=== PATIENT | female | born 1965 | race Caucasian/White ===

== ENCOUNTER 2021-06-17 03:07 | Observation (INO) | payer MEDICARE, MEDICAID, SELFPAY ==
[2021-06-17] VITALS (18 sets, daily range): BP systolic 134–163; BP diastolic 60–78; PULSE 71–103; RESP 15–20; TEMP 35.7–36.7; O2SAT 96–100; BMI 43.0
--- NOTE | ~2021-06-17 | XR_ITS ---
EXAMINATION: XR chest 2V DATE: 06/17/2021 03:47 INDICATION: Chest pain. TECHNIQUE: Frontal and lateral views of the chest were obtained. COMPARISON: CT abdomen 05/24/2007 FINDINGS: There is mild scarring at the lung apices. No pleural effusion or pneumothorax. The heart s ize is normal. Surgical clips in the right upper quadrant are likely from cholecystectomy. IMPRESSION: 1. Mild scarring at the lung apices. Reviewed, dictated and finalized at location A. OLEUM REFINING FIRER
--- NOTE | ~2021-06-17 | NM_ITS ---
EXAMINATION: NM suma stress w perfusion DATE: 06/18/2021 13:29 INDICATION: Atypical chest pain. TECHNIQUE: Rest images were obtained following intravenous administration of 11 mCi Tc99m tetrofosmin (Myoview). The patient was infused intravenously with Lexiscan (regadenoson). Then, 32.4 mCi Tc99m t etrofosmin (Myoview) was administered intravenously, and stress images were obtained. Data was recons tructed into short axis and horizontal and vertical long axis SPECT images. Gated SPECT images were a lso obtained. COMPARISON: CT abdomen 05/24/2007 FINDINGS: There is no definite reversible or fixed perfusion abnormality to suggest ischemia or infar ction. There is no segmental wall motion abnormality. Left ventricular ejection fraction measures 6 9%. IMPRESSION: 1. No definite ischemia or infarct. 2. Normal left ventricular ejection fraction measuring 69%. Reviewed, dictated and finalized at location A. SERVICE TECHNICIAN
--- NOTE | 2021-06-17 03:13 | ECG_ITS ---
Measurements Intervals [place] Rate: 89 P: 26 AL: 176 QRS: 8 QRSD: 92 T: 52 QT: 355 QTc: 432 Interpretive Statements SINUS RHYTHM BASELINE ARTIFACT LOW-VOLTAGE QRS BORDERLINE ECG NO PREVIOUS ECG AVAILABLE FOR COMPARISON Electronically Signed On 06-17-2021 14:05:24 TECHNICAL ARCHITECT by Arian Moore M.D.
[2021-06-17 03:24] LABS: Basophils Absolute Auto 0.1 K/mm3 (0.0-0.1); Basophils Percent Auto 0.7 % (0.2-1.2); Eosinophils Absolute Auto 0.3 K/mm3 (0-0.3); Eosinophils Percent Auto 3.2 % (0-4.4); Hematocrit 38.9 % (37.0-47.0); Hemoglobin 12.7 g/dL (12.0-15.0); Immature Granulocyte Absolute 0.04 K/mm3 (0.00-0.031); Immature Granulocyte Percent A 0.4 % (0-0.5); Lymphocytes Absolute Auto 2.94 K/mm3 (0.9-3.2); Mean Corpuscular HGB Conc 32.6 g/dl (32-36); Mean Corpuscular Hemoglobin 29.7 pg (26-34); Mean Corpuscular Volume 90.9 fl (80-100); Monocytes Absolute Auto 0.7 K/mm3 (0.1-0.6); Monocytes Percent Auto 6.9 % (2.6-8.5); Neutrophils Absolute Auto 6.1 K/mm3 (1.3-6.7); Neutrophils Percent Auto 59.8 % (45.5-73.1); Platelet Count Result 285 k/mm3 (150-375); Red Blood Count 4.28 M/mm3 (4.2-5.4); Red Cell Distribution Width 13.1 % (11.5-14.5); White Blood Count 10.1 K/mm3 (4.5-10.0)
[2021-06-17] MEDS: ASPIRIN 81 MG CHEWABLE TABLET 324 MG PO (03:28)
--- NOTE | 2021-06-17 03:30 | ED.CHESTPAIN ---
HPI - Chest Pain General Chief Complaint: Chest Pain Stated Complaint: chest pain Time Seen by Provider: 06/17/21 03:14 Source: patient Mode of arrival: ambulatory Limitations: no limitations History of Present Illness HPI narrative: Patient is a 55-year-old female complaining of chest pain, midsternal, sharp, was 7 out of 10, currently at 3 out of 10, nonradiating accompanied by dizziness and shortness of breath started a few hours prior to arrival. Patient denies any abdominal pain, nausea, vomiting, diaphoresis, fever or chills. Related Data Allergies Allergy/AdvReac Type Severity Reaction Status Date / Time ANTIOBIOTIC, DOES NOT KNOW Allergy Intermediate BURNT MY Uncoded 04/24/07 01:34 NAME MOUTH,OUTSIDE MOUTH RED RING,TROUBLE SWALLOWING Review of Systems Review of Systems: All systems reviewed & are unremarkable except as noted in HPI and below Constitutional: Constitutional: Denies body ache(s), Denies chills, Denies excessive sweating, Denies fatigue, Denies fever(s), Denies headache(s), Denies lethargy, Denies malaise, Denies weakness and Denies weight loss Eyes: Eyes: Denies blurry vision, Denies change in vision and Denies loss of vision ENT: Denies dizziness, Denies ear discharge, Denies headache(s), Denies lip swelling, Denies epistaxis, Denies nasal congestion, Denies neck pain, Denies throat swelling and Denies tongue swelling Cardiovascular: Cardiovascular: Denies diaphoresis, Denies rapid heart rate, Denies edema, Denies irregular heart rhythm, Denies lightheadedness and Denies palpitations Respiratory: Respiratory: Denies chest congestion, Denies cough and Denies hemoptysis Gastrointestinal: Gastrointestinal: Denies abdominal pain, Denies melena, Denies hematochezia, Denies diarrhea, Denies nausea, Denies vomiting and Denies hematemesis Musculoskeletal: Musculoskeletal: Denies abnormal gait, Denies deformity, Denies joint swelling, Denies limited range of motion, Denies neck pain and Denies numbness Neurologic: Denies Abnormal speech present, Denies abnormal gait, Denies confusion, Denies headache(s), Denies focal weakness, Denies loss of vision, Denies numbness, Denies Other visual disturbances, Denies Sensory deficit (Neuro) and Denies weakness Psychiatric: Psychiatric: Denies confusion, Denies depression, Denies auditory hallucinations, Denies homicidal ideation and Denies suicidal ideation Endocrine: Endocrine: Denies cold intolerance, Denies excessive sweating, Denies fatigue, Denies heat intolerance and Denies palpitations Hematologic/Lymphatic: Hematologic/Lymphatic: Denies easy bleeding and Denies easy bruising Allergic/Immunologic: Allergic/Immunologic: Denies lip swelling, Denies throat swelling and Denies tongue swelling PMFSH Comments Past medical history: Hypertension, hyperlipidemia, diabetes Family history: Positive for coronary artery disease Social history: Non-smoker no EtOH or drug use Exam Const: General: cooperative, healthy appearing, comfortable, no acute distress, well developed, alert and awake; No confusion Orientation/consciousness: oriented to person, oriented to place, oriented to time, patient oriented x3 and No confusion Limitations: no limitations HENMT: Head: normal to inspection, normocephalic and atraumatic Ears: hearing grossly normal bilaterally, TM normal on the right and TM normal on the left General nose exam: Normal external nose present, Normal nares present and No nasal discharge present Face and sinus: normal facial exam Mouth: Yes Normal oral and palatal mucosa present, Yes lip normal, Yes tongue normal and Yes oropharynx normal Throat: posterior oropharynx normal, tonsils normal and uvula midline Eyes: General: appearance normal, both eyes and all related structures Pupils: Equal, round and reactive pupils present EOM: EOMs intact bilaterally Neck: Neck: normal visual inspection, full ROM, no lymphadenopathy and no meningeal signs Chest:
[2021-06-17 03:36] LABS: Alanine Aminotransferase 21 U/L (4-35); Albumin Level 4.1 g/dL (3.5-5.1); Alkaline Phosphatase 91 U/L (38-126); Anion Gap 8 mmol/L (8-16); Aspartate Amino Transferase 30 U/L (14-36); Bilirubin,Total 0.1 mg/dL (0.2-1.3); Blood Urea Nitrogen 14 mg/dL (7-17); Calcium 8.8 mg/dL (8.4-10.2); Carbon Dioxide 28 mmol/L (22-30); Chloride 99 mmol/L (98-107); Estimated CRCL calculation 124 ml/min; Estimated Glomerular Filt Rate > 60; Glucose 237 mg/dL (65-110); Lipase 90 U/L (23-300); Potassium 3.8 mmol/L (3.4-5.0); Sodium 135 mmol/L (137-145)
[2021-06-17 03:39] LABS: Partial Thromboplastin Time 32.6 SECONDS (22.3-36.8)
[2021-06-17 03:44] LABS: Prothrombin Time 12.5 Seconds (11.1-14.7)
[2021-06-17 03:47] LABS: Troponin I < 0.012 ng/mL (0.000-0.034)
[2021-06-17] MEDS: NITROGLYCERIN OINTMENT 1 INCH DOSE TRANSDERM (04:59)
[2021-06-17 06:04] LABS: SARS-CoV-2 RNA PCR Negative
--- NOTE | 2021-06-17 06:46 | ADMGEN ---
This patient, Stacey Schumacher, was admitted to IMU Room 205-02. Patient/family oriented to hospital policies and general routines including ID bracelet, bed and alarms, visiting hours, pain management, procedures, bathroom and other care routines, personal items, smoking policy, room service/diet, and visiting hours. Information on how to activate the Rapid Response Team has been discussed. Patient/Family are encouraged to report perceived risks to care and to ask questions if they do not understand what they are told or what they should do.
[2021-06-17 06:53] LABS: Troponin I < 0.012 ng/mL (0.000-0.034)
[2021-06-17 09:43] LABS: Troponin I < 0.012 ng/mL (0.000-0.034)
--- NOTE | 2021-06-17 10:26 | PCCCNOTE ---
On 06/17/21, the student, [Lizzeth Fu ], provided care and completed [facility] documentation on this patient. I have reviewed the student's documentation and agree with the findings.
--- NOTE | 2021-06-17 12:17 | PM.IMHP ---
H&P: HPI History of Present Illness Date/Time: 06/17/21814 This 55 year old female patient with significant PMH of HTN, HLD, DM, and a Mitral Valve Prolapse that was diagnosed as a child, presented to the ER overnight with complaints of having CP. She endorses to this provider this AM that the patient has had a total of 6 months of intermittent Chest pain that is mid sternal and occasionally goes to the left shoulder. The pain waxes and wanes, is described as sharp, rated at 7/10, becoming increasingly painful over the past few hours prior to presentation, and she has had dizziness along with it. and she states it has become more constant over the past 2-3 weeks. She notes increased gas and belching as well as bloating. She also notes swelling to the BLE, as well as endorsing orthopnea over the past few weeks as well. She denies any overt Abdominal pain, N/V/D. Pt. initially told me that she has never seen a [facility], but then states she did see someone here at this facility approximately one week ago, and they wanted to obtain a Stress Test as an outpatient, however, there is no note present in the Medical Record showing that interaction. In the ER the patient was evaluated, EKG shows NSR at 89 bpm, and her troponin's have been negative. Heart Score is 4. Chest X-ray shows mild scarring at the lung apices. She is admitted for a Chest pain rule out. ECHO is ordered and Cardiology is consulted to evaluate the patient. Chief Complaint: Chest Pain Review of Systems Review of Systems: A full 12 point ROS was completed on this patient and is otherwise negative with exception of what is noted in HPI. All systems reviewed & are unremarkable except as noted in HPI and below PMFSH Social History Social History Smoking status: Never smoker Alcohol intake: never Substance use: never Spiritual care concerns: No Meds Home Medications and Allergies Home Medications Medication Instructions Recorded Confirmed Type dulaglutide [Trulicity] 1.5 mg SUBCUT WEEKLY 06/17/21 06/17/21 History insulin glargine [Lantus Solostar 40 unit SUBCUT BID 06/17/21 06/17/21 History U-100 Insulin] lisinopril-hydrochlorothiazide 1 tablet DAILY 06/17/21 06/17/21 History lovastatin 40 mg HS 06/17/21 06/17/21 History omeprazole 40 mg DAILY 06/17/21 06/17/21 History Allergies Allergy/AdvReac Type Severity Reaction Status Date / Time iohexol Allergy Other Verified 06/17/21 05:02 [From contrast - CT, X-RAY] ANTIOBIOTIC, DOES NOT KNOW Allergy Intermediate BURNT MY Uncoded 04/24/07 01:34 NAME MOUTH,OUTSIDE MOUTH RED RING,TROUBLE SWALLOWING Vital Signs Vital Signs - 24 hr 06/17/21 03:21 06/17/21 03:23 06/17/21 03:30 Temperature 96.9 F L Pulse Rate 89 87 79 Respiratory Rate 17 15 15 Blood Pressure 162/75 H Pulse Oximetry 99 99 99 06/17/21 03:31 06/17/21 04:36 06/17/21 04:45 Temperature Pulse Rate 83 76 76 Respiratory Rate 19 18 19 Blood Pressure 147/61 H Pulse Oximetry 98 99 99 06/17/21 05:00 06/17/21 06:27 06/17/21 06:52 Temperature 97.2 F L 96.2 F L Pulse Rate 77 71 75 Respiratory Rate 20 18 18 Blood Pressure 139/70 153/65 H 150/67 H Pulse Oximetry 99 98 98 06/17/21 08:00 Temperature 97.4 F L Pulse Rate 80 Respiratory Rate 16 Blood Pressure 141/63 H Pulse Oximetry 99 Exam Const: General: comfortable and no acute distress HENMT: Mouth: Yes moist mucous membranes Eyes: Sclera: sclerae normal Neck: Neck: supple and no JVD Thyroid: thyroid normal Lymphatic: lymphadenopathy not noted Resp: Effort & Inspection: normal respiratory effort Auscultation: clear to auscultation bilaterally Cardio: Rate: regular rate Rhythm: regular rhythm Heart sounds: Murmur heart sound present (Grade 2 systolic) GI: GI Palp: Yes Soft to palpation and No Tenderness to palpation present (GI) Auscultation: normal bowel sounds Skin:
--- NOTE | 2021-06-17 12:31 | ECHO_ITS ---
Patient Info Name: Stacey Schumacher Age: 55 years : 1965 Gender: Female Ht: 67 in Wt: 274 lbs BSA: 2.49 m2 HR: 83 bpm BP: 141 / 63 mmHg Heart Rhythm: Sinus Rhythm Exam Date: 06/17/2021 1:51 PM Exam Location: [facility] Patient Status: Inpatient Admit Date: 06/17/2021 Staff Ordering Physician: Arian Moore MD Implement Mechanic: Tunde Cordoba RDCS, RT Attending Provider: Romelia Hammond Referring Physician: Oscar GROSSMAN; Exam Type: CA echo doppler color flow Study Info Indications R07.9 - Chest pain, unspecified Complete two-dimensional, color flow and Doppler transthoracic echocardiogram is performed. Strain analysis performed. Summary 1. Complete two-dimensional, color flow and Doppler transthoracic echocardiogram is performed. 2. There is mild concentric increased left ventricular wall thickness. 3. Left ventricular systolic function is normal, estimated at 60-65%. 4. Left atrial chamber dimension is mildly enlarged. 5. No significant valvular abnormality. Left Ventricle Left ventricular chamber dimension is normal. Left ventricular systolic function is normal, estimated at 60-65%. There is mild concentric increased left ventricular wall thickness. The left ventricular diastolic function is grade I diastolic dysfunction. Right Ventricle Right ventricular chamber dimension is normal. Left Atria Left atrial chamber dimension is mildly enlarged. Right Atria Right atrial chamber dimension is normal. Aortic Valve The aortic valve is normal. Pulmonic Valve The pulmonic valve is not well visualized. Mitral Valve The mitral valve has normal leaflets. There is trace mitral valve regurgitation. Tricuspid Valve The tricuspid valve leaflets are normal. Pericardium/Pleural The pericardium appears normal. Aorta The aortic root size at the sinus of Valsalva is normal. Left Ventricular Outflow Tract Name Value Normal LVOT 2D LVOT Diameter 2.0 cm LVOT Doppler LVOT Peak Gradient 6 mmHg LVOT Mean Gradient 3 mmHg LVOT VTI 24 cm LVOT VTI/AV VTI Ratio 0.6 LVOT Stroke Volume 70 ml LVOT CO 6.4 l/min LVOT CI 2.6 l/min/m2 Mitral Valve Name Value Normal MV Doppler MV Decel [place] 569 cm/s2 MV PHT 53 ms MV Area (PHT) 4.2 cm2 4.0-5.0 MV Diastolic Function MV E Peak Velocity 103 cm/s MV A Peak Velocity 135 cm/s MV E/A 0.8 MV Decel Time
[2021-06-17 12:50] LABS: Hemoglobin A1C 7.8 % (<5.7)
--- NOTE | 2021-06-17 14:33 | PM.CNCAR ---
Assessment and Plan Additional Plan 55-year-old woman with a 6 month history of chest pain is highly atypical and not suggestive of myocardial ischemia. I will go ahead and schedule the Lexiscan nuclear stress test and I recommended when I saw her in the office last week with these symptoms. That will be done tomorrow morning. Further recommendations will be pending those findings. Alexis Whitaker MD [facility] History of Present Illness History of Present Illness Consult date/time: 06/17/21 14:33 Consult reason: chest pain Reason For Visit: Chest pain Narrative: This is a 55-year-old woman I am seeing this afternoon at the request of the hospitalist because of chest pain. The patient was admitted after being evaluated in the emergency department in the middle of the night and admitted to IMU. She appears to be in good spirits at this time and does not have any active complaints. She says that she has been having increasing frequency episodes of chest pain that she describes as sudden sharp knife-like central or left precordial pain that comes and goes in an unpredictable fashion. The pain is not associated with physical exertion or meals. She states recently she thinks it is worse when she lies down in bed and tries to go to sleep. As it happens I saw this patient in the office as a consult for these symptoms on 06/11/2021 and did not believe there was likely to be a cardiac basis to this. Because of her ongoing symptoms however which she has mentioned started about 6 months ago I arranged for a Lexiscan nuclear stress test to be done. The stress test as an outpatient has not yet occurred as I just saw the patient last week. She was admitted for this reason last night and is being seen again in the IMU in this situation. Her past medical history is otherwise remarkable for a previous cholecystectomy. History of esophageal reflux disease and longstanding hypertension and hyperlipidemia. She also has [id number] diabetes and morbid obesity. She denies any symptoms of orthopnea or PND. She reports some mild chronic lower extremity edema. Has no history of palpitations or syncope. Review of Systems Constitutional: Constitutional: Reports no additional constitutional complaints Eyes: Eyes: Reports no additional eye complaints Comments: Patient was told of a retinal hemorrhage during a recent ophthalmology follow-up exam ENT: Reports system reviewed and no additional complaints, except as documented Cardiovascular: Cardiovascular: Reports as per HPI Respiratory: Respiratory: Reports no additional respiratory complaints Gastrointestinal: Gastrointestinal: Reports as per HPI Musculoskeletal: Musculoskeletal: Reports no additional musculoskeletal complaints Integumentary/Breasts: Skin/Breast: Reports system reviewed and no additional complaints, except as docu Neurologic: Reports system reviewed and no additional complaints, except as documented Endocrine: Endocrine: Reports no additional endocrine complaints Hematologic/Lymphatic: Hematologic/Lymphatic: Reports no additional hematologic/lymphatic complaints Allergic/Immunologic: Allergic/Immunologic: Reports no additional allergic/immunologic complaints [facility] Social History Social History Smoking status: Never smoker Alcohol intake: never Substance use: never Spiritual care concerns: No Meds Home Medications and Allergies Home Medications Medication Instructions Recorded Confirmed Type dulaglutide [Trulicity] 1.5 mg SUBCUT WEEKLY 06/17/21 06/17/21 History insulin glargine [Lantus Solostar 40 unit SUBCUT BID 06/17/21 06/17/21 History U-100 Insulin] lisinopril-hydrochlorothiazide 1 tablet DAILY 06/17/21 06/17/21 History lovastatin 40 mg HS 06/17/21 06/17/21 History omeprazole 40 mg DAILY 06/17/21 06/17/21 History Allergies Allergy/AdvReac Type Severity Reaction Status Date / Time
--- NOTE | 2021-06-17 14:40 | EST_ITS ---
Patient Info Name: Stacey Schumacher Age: 55 years : 1965 Gender: Female Ht: 67 in Wt: 274 lbs BSA: 2.49 m2 Exam Date: 06/18/2021 12:08 PM Exam Location: [facility] Stress Patient Status: Inpatient Admit Date: 06/17/2021 Staff Ordering Physician: Alexis Whitaker MD Attending Provider: Yenny Baez MD Exercise Technologist: Venus Ochoa, CT Exam Type: CA stress suma w NM Study Info Indications R07.9 - Chest pain, unspecified A regadenoson stress test was performed. Summary 1. No ST-T changes meeting strict criteria for reversible myocardial ischemia with Lexiscan administration. 2. No arrhythmias were observed during the examination. 3. Please correlate with nuclear medicine images, reported separately. 4. No chest discomfort with stress test. Protocol: Lexiscan Stress ECG Details Stage: REST Duration (min): 0 min : 58 sec HR (bpm): 84 SBP (mmHg): 138 DBP (mmHg): 80 Stage: REST Duration (min): 9 min : 49 sec HR (bpm): 88 SBP (mmHg): 138 DBP (mmHg): 80 Stage: STAGE 1 Duration (min): 0 min : 59 sec HR (bpm): 106 SBP (mmHg): 153 DBP (mmHg): 58 Stage: RECOVERY Duration (min): 1 min : 0 sec HR (bpm): 111 SBP (mmHg): 153 DBP (mmHg): 58 Stage: RECOVERY Duration (min): 2 min : 0 sec HR (bpm): 93 SBP (mmHg): 153 DBP (mmHg): 58 Stage: RECOVERY Duration (min): 3 min : 0 sec HR (bpm): 105 SBP (mmHg): 153 DBP (mmHg): 58 Stage: RECOVERY Duration (min): 4 min : 0 sec HR (bpm): 101 SBP (mmHg): 153 DBP (mmHg): 58 Stage: RECOVERY Duration (min): 4 min : 16 sec HR (bpm): 100 SBP (mmHg): 185 DBP (mmHg): 61 Rest HR: 88 bpm Peak HR: 114 bpm Rest Sys BP: 138 mmHg Peak Sys BP: 185 mmHg Max Pred HR: 167 bpm % Max Pred HR: 68 % Target HR: 142 bpm Max RPP: 21,090 bpm*mmHg BP Response: Normal blood pressure response Termination Reason: Completed protocol Cardiac Symptoms: Shortness of breath Total Time: 1 min : 0 sec Rest [place] BP: 80 mmHg Peak [place] BP: 61 mmHg Total Dose: 0.4 mg Resting ECG Normal sinus rhythm. Cannot rule out septal PR, age indeterminate. Stress ECG No ST-T changes meeting strict criteria for reversible myocardial ischemia with Lexiscan administration. Arrhythmias No arrhythmias were observed during the examination. Report Signatures
[2021-06-17 16:59] LABS: Glucose Point of Care 197 mg/dl (65-105)
[2021-06-17 19:53] LABS: Glucose Point of Care 248 mg/dl (65-105)
[2021-06-17] MEDS: LOVASTATIN 20 MG TABLET 40 MG PO (19:56)
[2021-06-17] MEDS: INSULIN GLARGINE (*BKC) 100 UNITS/ML 40 UNITS SUB-Q (19:57)
[2021-06-18] VITALS (14 sets, daily range): BP systolic 123–146; BP diastolic 59–74; PULSE 73–101; RESP 14–22; TEMP 35.8–36.7; O2SAT 96–100
[2021-06-18 08:24] LABS: Glucose Point of Care 190 mg/dl (65-105)
[2021-06-18] MEDS: hydroCHLOROthiazide 25 MG TABLET PO (09:26)
[2021-06-18] MEDS: lisinopriL 10 MG TABLET PO (09:26)
[2021-06-18] MEDS: PANTOPRAZOLE 40 MG TABLET PO ×2 (09:26→17:18)
--- NOTE | 2021-06-18 10:19 | PM.IMPN ---
Progress Note: A&P Assessment and Plan (1) Hyperlipidemia: Onset Date: Unknown Qualifiers: Hyperlipidemia type: unspecified Qualified Code(s): E78.5 - Hyperlipidemia, unspecified Code(s): E78.5 - Hyperlipidemia, unspecified Status: Chronic (2) Hypertension: Onset Date: Unknown Qualifiers: Hypertension type: unspecified Qualified Code(s): I10 - Essential (primary) hypertension Code(s): I10 - Essential (primary) hypertension Status: Chronic (3) Chest pain: Qualifiers: Chest pain type: unspecified Qualified Code(s): R07.9 - Chest pain, unspecified Code(s): R07.9 - Chest pain, unspecified Status: Acute (4) Hyperglycemia due to type 2 diabetes mellitus: Onset Date: Unknown Qualifiers: Diabetes mellitus half-way insulin use: unspecified extermination supervisor insulin use status Qualified Code(s): E11.65 - Type 2 diabetes mellitus with hyperglycemia Code(s): E11.65 - Type 2 diabetes mellitus with hyperglycemia Status: Chronic (5) Obesity, Class III, BMI 40-49.9 (morbid obesity): Code(s): E66.01 - Morbid (severe) obesity due to excess calories Status: Acute Additional Plan 06/18/21 atypical sounding cp cardiology consulted pt w bloating -> simethicone PPI BID Carafate stress test pending will monitor overnight to see how GI meds work and dc home tomorrow w outpt GI follow up (pt has appt for next month) Subjective Date/time seen: 06/18/21 10:19 Patient doing okay reports that she was nervous about chest pain never sought medical attention. Patient reassured that with low soon results were stress test. long hx of GERD CP symptoms worse when lying down Exam Narrative: GEN: NAD, AAOx3, cooperative, obese HEENT: NCAT, MMM, EOMI Neck: no JVD Heart: S1S2 RRR murmur Lungs: CTA B/l Abd: soft, NT, ND, bowel sounds normoactive Ext: moves all, no cyanosis, no clubbing, no edema Neuro: Normal cognition, no focal neuro deficits appreciated Psych: mood and affect congruent Objective Data Vital Signs Vital Signs: Vital Signs - 24 hr 06/17/21 12:00 06/17/21 14:00 06/17/21 16:00 Temperature 98.0 F 98.1 F Pulse Rate 81 86 82 Respiratory Rate 16 16 Blood Pressure 134/60 163/70 H Pulse Oximetry 98 99 06/17/21 16:40 06/17/21 18:00 06/17/21 20:00 Temperature 97.1 F L Pulse Rate 75 79 103 H Respiratory Rate 18 20 Blood Pressure 137/78 Pulse Oximetry 96 97 06/17/21 22:00 06/18/21 00:00 06/18/21 02:00 Temperature 96.5 F L Pulse Rate 78 84 86 Respiratory Rate 20 Blood Pressure 123/59 L Pulse Oximetry 98 06/18/21 04:00 06/18/21 05:07 06/18/21 06:00 Temperature 96.7 F L Pulse Rate 85 88 73 Respiratory Rate 20 Blood Pressure 145/72 H Pulse Oximetry 96 06/18/21 08:00 Temperature 97.7 F Pulse Rate 79 Respiratory Rate 15 Blood Pressure 130/66 Pulse Oximetry 96 Intake/Output Intake/Output: Intake & Output 06/15/21 06/16/21 06/17/21 06/18/21 23:59 23:59 23:59 23:59 Intake Total 1680 120 Balance 1680 120 Meds/Results Medications: Active Medications Generic Name Dose Route Start Last Admin Trade Name Freq PRN Reason Stop Dose Admin Dextrose 12.5 gm 06/17/21 12:32 Dextrose 50% 25 Gm/50 Ml Syringe IV PUSH PRN PRN Hypoglycemia Protocol Glucagon 1 mg 06/17/21 12:32 Glucagon For Inj 1 Mg Vial IM PRN PRN Hypoglycemia Protocol Glucose 15 gm 06/17/21 12:32 Glucose Oral Gel 15 Gm Of Glucse In 37.5 Gm Tube PO PRN PRN Hypoglycemia Protocol Hydrochlorothiazide 25 mg 06/18/21 09:00 06/18/21 09:26 Hydrochlorothiazide 25 Mg Tablet PO 25 mg QAM SLIME Administration Dextrose 1,000 mls @ 100 mls/hr 06/17/21 12:32 Dextrose 5% 1,000 Ml IVPB PRN PRN Hypoglycemia Protocol Insulin Aspart 2 - 5 units 06/17/21 17:00 06/18/21 09:19 Insulin Aspart (*Bkc) 100 U
--- NOTE | 2021-06-18 12:18 | PM.PNCARD ---
Progress Note: A&P Assessment and Plan (1) Chest pain: Qualifiers: Chest pain type: unspecified Qualified Code(s): R07.9 - Chest pain, unspecified Code(s): R07.9 - Chest pain, unspecified Status: Acute Assessment and Plan: Patient with chest pain with atypical features with coronary risk factors including hypertension, diabetes mellitus, obesity. Patient is scheduled for MPI today. Need for invasive ischemic evaluation based on clinical course and MPI results. Optimal treatment of hypertension, diabetes mellitus. Risk factor modification including weight loss. Outpatient follow-up. Subjective Date/time seen: 06/18/21 12:18 Date of service: 06/18/2021 -patient denies any recurrent chest pain. No shortness of breath at rest. Schedule for MPI today. Exam Narrative: PHYSICAL EXAMINATION: GENERAL: Obese,Alert, oriented, no acute distress MENTAL STATUS: affect appropriate to mood EYES: Extraocular movements intact, no pallor EARS: External ears appear normal, hearing grossly normal NOSE: Normal and patent, no discharge MOUTH: Mucous membranes moist, tongue normal NECK: Supple, no JVD CHEST: Good respiratory effort, clear to auscultation HEART: Normal rate, regular rhythm, normal S1 and S2 ABDOMEN: Soft, nontender NEUROLOGICAL: Alert, oriented, normal speech, no gross motor deficits MUSCULOSKELETAL: No major deformity, no amputation EXTREMITIES: No pedal edema, no clubbing, no cyanosis SKIN: no rash on the exposed area, no cyanosis PSYCHIATRIC: Normal mood, appropriate affect Objective Data Vital Signs Vital Signs: Vital Signs - 24 hr 06/17/21 14:00 06/17/21 16:00 06/17/21 16:40 Temperature 36.7 C Pulse Rate 86 82 75 Respiratory Rate 16 18 Blood Pressure 163/70 H Pulse Oximetry 99 96 06/17/21 18:00 06/17/21 20:00 06/17/21 22:00 Temperature 36.2 C L Pulse Rate 79 103 H 78 Respiratory Rate 20 Blood Pressure 137/78 Pulse Oximetry 97 06/18/21 00:00 06/18/21 02:00 06/18/21 04:00 Temperature 35.8 C L Pulse Rate 84 86 85 Respiratory Rate 20 Blood Pressure 123/59 L Pulse Oximetry 98 06/18/21 05:07 06/18/21 06:00 06/18/21 08:00 Temperature 35.9 C L 36.5 C Pulse Rate 88 73 76 Respiratory Rate 20 15 Blood Pressure 145/72 H 130/66 Pulse Oximetry 96 96 06/18/21 10:00 Temperature Pulse Rate 89 Respiratory Rate Blood Pressure Pulse Oximetry Intake/Output Intake/Output: Intake & Output 06/15/21 06/16/21 06/17/21 06/18/21 23:59 23:59 23:59 23:59 Intake Total 1680 120 Balance 1680 120 Meds/Results Medications: Active Medications Generic Name Dose Route Start Last Admin Trade Name Freq PRN Reason Stop Dose Admin Dextrose 12.5 gm 06/17/21 12:32 Dextrose 50% 25 Gm/50 Ml Syringe IV PUSH PRN PRN Hypoglycemia Protocol Glucagon 1 mg 06/17/21 12:32 Glucagon For Inj 1 Mg Vial IM PRN PRN Hypoglycemia Protocol Glucose 15 gm 06/17/21 12:32 Glucose Oral Gel 15 Gm Of Glucse In 37.5 Gm Tube PO PRN PRN Hypoglycemia Protocol Hydrochlorothiazide 25 mg 06/18/21 09:00 06/18/21 09:26 Hydrochlorothiazide 25 Mg Tablet PO 25 mg QAM SLIME Administration Dextrose 1,000 mls @ 100 mls/hr 06/17/21 12:32 Dextrose 5% 1,000 Ml IVPB PRN PRN Hypoglycemia Protocol Insulin Aspart 2 - 5 units 06/17/21 17:00 06/18/21 09:19 Insulin Aspart (*Bkc) 100 Units/Ml SUB-Q Not Given TIDWM SLIME Protocol Insulin Glargine 40 units 06/17/21 21:00 06/18/21 09:26 Insulin Glargine (*Bkc) 100 Units/Ml SUB-Q Not Given Q12HR [facility] Lisinopril 10 mg 06/18/21 09:00 06/18/21 09:26 Lisinopril 10 Mg Tablet PO 10 mg DAILY SLIME Administration Lovastatin 40 mg 06/17/21 21:00 06/17/21 19:56 Lovastatin 20 Mg Tablet PO 40 mg HS SLIME Administration Pantoprazole Sodium 40 mg 06/18/21 09:00 06/18/21 09:26 Pantopr
[2021-06-18 13:21] LABS: Glucose Point of Care 148 mg/dl (65-105)
[2021-06-18] MEDS: SIMETHICONE 80 MG TAB.CHEW PO ×3 (13:24→19:55)
[2021-06-18] MEDS: SUCRALFATE 1 GM TABLET PO ×3 (13:24→19:56)
[2021-06-18 16:25] LABS: Glucose Point of Care 301 mg/dl (65-105)
[2021-06-18] MEDS: INSULIN ASPART (*BKC) 100 UNITS/ML SUB-Q (17:17)
[2021-06-18] MEDS: INSULIN GLARGINE (*BKC) 100 UNITS/ML 40 UNITS SUB-Q (19:54)
[2021-06-18] MEDS: LOVASTATIN 20 MG TABLET 40 MG PO (19:55)
[2021-06-18 20:02] LABS: Glucose Point of Care 251 mg/dl (65-105)
[2021-06-19] VITALS (10 sets, daily range): BP systolic 132–145; BP diastolic 70–77; PULSE 76–103; RESP 18–20; TEMP 36.1–36.3; O2SAT 96–100
[2021-06-19] MEDS: SUCRALFATE 1 GM TABLET PO (06:25)
[2021-06-19] MEDS: lisinopriL 10 MG TABLET PO (08:57)
[2021-06-19] MEDS: PANTOPRAZOLE 40 MG TABLET PO (08:57)
[2021-06-19] MEDS: hydroCHLOROthiazide 25 MG TABLET PO (08:57)
[2021-06-19] MEDS: SIMETHICONE 80 MG TAB.CHEW PO (08:57)
[2021-06-19] MEDS: INSULIN GLARGINE (*BKC) 100 UNITS/ML 40 UNITS SUB-Q (08:58)
[2021-06-19 09:01] LABS: Glucose Point of Care 176 mg/dl (65-105)
--- NOTE | 2021-06-19 09:28 | PM.DS ---
DS: Admitting Diagnosis Discharge Date 06/19/21 Admitting Diagnosis (1) Chest pain: (2) Hyperglycemia due to type 2 diabetes mellitus: (3) Hypertension: (4) Hyperlipidemia: DS: Discharge Diagnosis Discharge Diagnosis (1) Atypical chest pain: Code(s): R07.89 - Other chest pain Status: Acute (2) GERD (gastroesophageal reflux disease): Code(s): K21.9 - Gastro-esophageal reflux disease without esophagitis Status: Acute (3) Obesity, Class III, BMI 40-49.9 (morbid obesity): Code(s): E66.01 - Morbid (severe) obesity due to excess calories Status: Acute (4) Hyperlipidemia: Onset Date: Unknown Qualifiers: Hyperlipidemia type: unspecified Qualified Code(s): E78.5 - Hyperlipidemia, unspecified Code(s): E78.5 - Hyperlipidemia, unspecified Status: Chronic (5) Hyperglycemia due to type 2 diabetes mellitus: Onset Date: Unknown Qualifiers: Diabetes mellitus terminal clerk insulin use: unspecified terminal clerk insulin use status Qualified Code(s): E11.65 - Type 2 diabetes mellitus with hyperglycemia Code(s): E11.65 - Type 2 diabetes mellitus with hyperglycemia Status: Chronic (6) Hypertension: Onset Date: Unknown Qualifiers: Hypertension type: unspecified Qualified Code(s): I10 - Essential (primary) hypertension Code(s): I10 - Essential (primary) hypertension Status: Chronic DS: Summary Hospital Course Reason for hospitalization: Chest pain Hospital Course: 55-year-old female with obesity hypertension diabetes presents to the emergency room with chief complaint of chest pain. Patient has had ongoing episodes of chest pain in the outpatient setting and therefore cardiology was consulted and patient underwent stress testing. Results were negative for ischemic changes and and she was subsequently discharged home in stable condition with indications to follow up with her primary care physician within 1 week. For her centralized chest pain worse with lying down likely related to her GERD, she has been given sulfate and simethicone. Her home omeprazole has been continued at 40 mg p.o. q.day. Status at Discharge Functional status at discharge: independent ambulation Overall status at discharge: patient is back to baseline Time Spent with Patient Time attestation: Total time spent providing and/or coordinating discharge services: Time spent: Greater than 30 minutes Exam Narrative: GEN: NAD, AAOx3, cooperative, obese HEENT: NCAT, MMM, EOMI Neck: no JVD Heart: S1S2 RRR murmur Lungs: CTA B/l Abd: soft, NT, ND, bowel sounds normoactive Ext: moves all, no cyanosis, no clubbing, no edema Neuro: Normal cognition, no focal neuro deficits appreciated Psych: mood and affect congruent DS: Data Data Completed and Pending Labs on day of discharge: Labs from last 24 hours 06/19/21 06/18/21 06/18/21 08:56 19:42 15:40 POC Capillary Glucose 176 H 251 H 301 H 06/18/21 13:11 POC Capillary Glucose 148 H Discharge Plan Discharge Attending physician on discharge: Yenny Baez Consulting providers: Arian Moore Discharging Clinician: Yenny Baez Anticipated Discharge Date/Time: 06/19/21 09:23 Patient Disposition: Home, Self-Care Activity: as tolerated Diet: heart healthy and diabetic Patient Instructions: Antibiotic Form Stand Alone Forms: General Discharge Information Follow-up/Referrals: Chris,MD Claudia [Primary Care Provider] - Discharge Medications: New simethicone 80 mg Tablet,Chewable 80 mg PO QID PRN (Reason: Abdominal Distention) 30 Days Qty: 60 RF: 0 sucralfate 1 gram Tablet 1 g PO ACHS 90 Days Qty: 360 RF: 0 Continued lisinopril-hydrochlorothiazide 20-12.5 mg tablet 1 tablet DAILY RF: 0 lovastatin 40 mg tablet 40 mg HS RF: 0 omeprazole 40 mg capsule,delayed release(DR/EC) 40 mg DAILY RF: 0
[2021-06-19 11:53] LABS: Glucose Point of Care 277 mg/dl (65-105)
== END 2021-06-19 13:10 | disposition home or self-care (01) ==
LOC: ANHED 04:32 → ANHIMU 06:42
PROVIDERS: Nurse Practitioner Adult Health; Admitting Provider Internal Medicine; Emergency Provider Emergency Medicine; PCP Internal Medicine; Visit Provider Hospitalist
DX: R07.89 Other chest pain (principal); E11.65 Type 2 diabetes mellitus with hyperglycemia; R06.02 Shortness of breath; M79.89 Other specified soft tissue disorders; R42 Dizziness and giddiness; I10 Essential (primary) hypertension; E78.5 Hyperlipidemia, unspecified; I34.1 Nonrheumatic mitral (valve) prolapse; Z79.4 Long term (current) use of insulin; Z79.899 Other long term (current) drug therapy; E66.01 Morbid (severe) obesity due to excess calories; Z68.41 Body mass index [BMI] 40.0-44.9, adult; Z20.822 Contact with and (suspected) exposure to COVID-19
CPT/HCPCS: 36415; 71046; 78452; 80053; 82948; 83036; 83690; 84484; 85025; 85610; 85730; 93005; 93017; 93306; 99285; A9270; A9502; C9803; G0378; J1815; J2785; U0003; U0005

== ENCOUNTER 2023-02-17 12:42 | Emergency (ER) | payer MEDICARE, MEDICAID, SELFPAY ==
--- NOTE | 2023-02-17 12:48 | ED.URI ---
HPI - URI/Sore Throat General Chief Complaint: Upper Respiratory Infection Stated Complaint: throat Source: patient and RN notes reviewed History of Present Illness HPI Narrative: 57 yo F presents to urgent care with complaints of a sore throat x 3 weeks. Pt states her ears have been itchy as well. Pt denies any fevers, chills, new chest pain or SOB, new abdominal pain, N/V/D, or other symptoms. Pt is also requesting 3 more amoxicillin pills that she is supposed to take the day before she gets her tooth pulled. Pt states she is [facility] but they don't prescribe medications but states she has to have 3 amox the day prior due to her high risk of heart infection. Related Data Home Medications Medication Instructions Recorded Confirmed insulin glargine 100 unit/mL (3 50 unit subcut QAM 06/17/21 02/17/23 mL) subcutaneous pen (Lantus Solostar U-100 Insulin) omeprazole 40 mg capsule,delayed 40 mg DAILY 06/17/21 02/17/23 release glimepiride 4 mg tablet 4 mg PO BID 02/17/23 02/17/23 insulin aspart U-100 100 unit/mL See Rx Instructions .Route .COMPLEX 02/17/23 02/17/23 (3 mL) subcutaneous pen (Novolog FlexPen U-100 Insulin aspart) lisinopril 20 1 tablet PO DAILY 02/17/23 02/17/23 mg-hydrochlorothiazide 25 mg tablet Allergies Allergy/AdvReac Type Severity Reaction Status Date / Time iohexol Allergy Other Verified 02/17/23 13:03 [From contrast - CT, X-RAY] Review of Systems Review of Systems: Pertinent positives and pertinent negatives per HPI. [facility] Social History Social History Smoking status: Never smoker Alcohol intake: never Substance use: never Spiritual care concerns: No Comments At the time of my signature, I reviewed and agree with the nursing past medical, surgical, social, and family history. There is no relevant family history pertinent to the patient complaint. Exam Narrative: GENERAL: This is a well-nourished, well-developed patient, in no apparent distress. HEAD: normocephalic, atraumatic. EYES: Sclera clear/white. Vision is grossly intact. EARS: External ears normal, auditory canals clear and without drainage, TMs normal without perforation. Hearing grossly intact. NOSE: External nose normal with no obvious nasal discharge, nares without redness, no rhinorrhea. THROAT: Mucous membranes moist, posterior pharynx clear. NECK: Neck supple, non-tender without lymphadenopathy, masses or thyromegaly. CARDIOVASCULAR: Regular rate and rhythm without murmurs, gallops, or rubs. RESPIRATORY: Clear to auscultation. Breath sounds equal bilaterally. No wheezes, rales, or rhonchi. GASTROINTESTINAL: Abdomen soft, non-tender, nondistended. Bowel sounds are active. No hepato-splenomegaly, or palpable masses. No guarding. SKIN: warm, intact with no suspicious lesions or rash, good texture and turgor. NEURO: awake, alert, and oriented to person, place and time. There were no obvious focal neurologic abnormalities. EXTREMITIES: No clubbing, cyanosis, or edema. No joint tenderness, effusion, or edema noted. BACK: Nontender without deformity or crepitus. No flank tenderness. Course Course Level of Care: Express Care Visit Vital Signs Vital signs: Vital Signs Temperature 96.3 F L 02/17/23 12:52 Pulse Rate 92 02/17/23 12:52 Respiratory Rate 18 02/17/23 12:52 Blood Pressure 150/51 H 02/17/23 12:52 Pulse Oximetry 97 02/17/23 12:52 Oxygen Delivery Room Air 02/17/23 12:52 Temperature 96.3 F L 02/17/23 12:52 Pulse Rate 92 02/17/23 12:52 Respiratory Rate 18 02/17/23 12:52 Blood Pressure 150/51 H 02/17/23 12:52 Pulse Oximetry 97 02/17/23 12:52 Oxygen Delivery Room Air 02/17/23 12:52 Reviewed MDM - URI/Sore Throat MDM Narrative Medical decision making narrative: After 24 hours on antibiotics throw tooth brush away and start using a new one.
[2023-02-17 12:52] VITALS: BP 150/51; PULSE 92; RESP 18; TEMP 35.7; O2SAT 97
== END 2023-02-17 13:15 | disposition home or self-care (01) ==
PROVIDERS: Emergency Provider Nurse Practitioner Family; PCP Internal Medicine
DX: J02.0 Streptococcal pharyngitis (principal); I20.9 Angina pectoris, unspecified; E78.00 Pure hypercholesterolemia, unspecified; I10 Essential (primary) hypertension; K21.9 Gastro-esophageal reflux disease without esophagitis; E11.9 Type 2 diabetes mellitus without complications; Z79.4 Long term (current) use of insulin
CPT/HCPCS: 87880; 99213; G0463

== ENCOUNTER 2023-04-24 10:37 | Emergency (ER) | payer MEDICARE, MEDICAID, SELFPAY ==
[2023-04-24 10:58] VITALS: BP 138/61; PULSE 89; RESP 16; TEMP 36.2; O2SAT 99
--- NOTE | 2023-04-24 11:32 | ED.URI ---
HPI - URI/Sore Throat General Chief Complaint: Upper Respiratory Infection Stated Complaint: throat Time Seen by Provider: 04/24/23 11:32 Source: patient Mode of arrival: ambulatory Limitations: no limitations History of Present Illness HPI Narrative: 57 yo F presents with c/o sore throat for 1 wk. Was waiting for it to get better on its own but no improvement. All systems reviewed and negative except as noted above. Related Data Home Medications Medication Instructions Recorded Confirmed insulin glargine 100 unit/mL (3 50 unit subcut QAM 06/17/21 02/17/23 mL) subcutaneous pen (Lantus Solostar U-100 Insulin) omeprazole 40 mg capsule,delayed 40 mg DAILY 06/17/21 02/17/23 release glimepiride 4 mg tablet 4 mg PO BID 02/17/23 02/17/23 insulin aspart U-100 100 unit/mL See Rx Instructions .Route .COMPLEX 02/17/23 02/17/23 (3 mL) subcutaneous pen (Novolog FlexPen U-100 Insulin aspart) lisinopril 20 1 tablet PO DAILY 02/17/23 02/17/23 mg-hydrochlorothiazide 25 mg tablet lovastatin 40 mg tablet mg 04/24/23 Allergies Allergy/AdvReac Type Severity Reaction Status Date / Time iohexol Allergy Other Verified 02/17/23 13:03 [From contrast - CT, X-RAY] Review of Systems Review of Systems: CONSTITUTIONAL: Denies fever, chills, or sweats. EYES: Denies visual changes, redness, or discharge. ENT: Denies rhinorrhea, congestion. Reports sore throat. Denies otalgia. CARDIOVASCULAR: Denies chest pain, palpitations, or edema. RESPIRATORY: Denies cough or dyspnea. GASTROINTESTINAL: Denies abdominal pain, nausea, vomiting, or diarrhea. GENITOURINARY: Denies dysuria or hematuria. SKIN: Denies rash or itching. MUSCULOSKELETAL: Denies back pain, joint pain, or myalgia. NEUROLOGIC: Denies headache, numbness, or weakness. PSYCHIATRIC: Denies anxiety or depression. All other systems reviewed are negative, except as documented in HPI. [facility] Social History Social History Smoking status: Never smoker Alcohol intake: never Substance use: never Spiritual care concerns: No Comments At time of signature, agree with nursing past medical, surgical, social and family history. There is no relevant family history pertinent to the presenting complaint. Exam Narrative: GENERAL: This is a well-nourished, well-developed patient, in no apparent distress. HEAD: normocephalic, atraumatic. EYES: PERRL. Sclera clear/white. Vision is grossly intact. EARS: External ears normal, auditory canals clear and without drainage, TMs normal without perforation. Hearing grossly intact. NOSE: External nose normal with no obvious nasal discharge, nares without redness, no rhinorrhea. THROAT: Mucous membranes moist, erythema with mild swelling. No exudates. NECK: Neck supple, non-tender without lymphadenopathy, masses or thyromegaly. CARDIOVASCULAR: Regular rate and rhythm without murmurs, gallops, or rubs. RESPIRATORY: Clear to auscultation. Breath sounds equal bilaterally. No wheezes, rales, or rhonchi. SKIN: warm, Dry, intact with no suspicious lesions or rash, good texture and turgor. NEURO: awake, alert, and oriented to person, place and time. There were no obvious focal neurologic abnormalities. EXTREMITIES: No joint tenderness, effusion, or edema noted. Course Course Level of Care: Express Care Visit Vital Signs Vital signs: Vital Signs Temperature 36.2 C L 04/24/23 10:58 Pulse Rate 89 04/24/23 10:58 Respiratory Rate 16 04/24/23 10:58 Blood Pressure 138/61 04/24/23 10:58 Pulse Oximetry 99 04/24/23 10:58 Oxygen Delivery Room Air 04/24/23 10:58 Temperature 36.2 C L 04/24/23 10:58 Pulse Rate 89 04/24/23 10:58 Respiratory Rate 16 04/24/23 10:58 Blood Pressure 138/61 04/24/23 10:58 Pulse Oximetry 99 04/24/23 10:58 Oxygen Delivery Room Air 04/24/23 10:58 Reviewed MDM - URI/Sore Throat MDM Narrative Medical deci
== END 2023-04-24 11:42 | disposition home or self-care (01) ==
PROVIDERS: Emergency Provider Nurse Practitioner Family; PCP Internal Medicine
DX: J02.0 Streptococcal pharyngitis (principal); Z79.4 Long term (current) use of insulin; Z79.899 Other long term (current) drug therapy
CPT/HCPCS: 87880; 99213; G0463